=== PATIENT | female | born 1985 | race American Indian/Alaskan Native ===

== ENCOUNTER 2017-08-20 08:26 | Emergency (ER) | payer BC, MEDICAID ==
[2017-08-20 11:35] LABS: Basophils % (Auto) 0.6 % (0.0-1.8); Eosinophils % (Auto) 0.5 % (0.0-4.3); Hematocrit 36.2 % (30.3-42.9); Hemoglobin 12.1 gm/dl (10.1-14.3); Lymphocytes # (Auto) 2.2 K/mm3 (1.2-5.4); Lymphocytes % (Auto) 28.2 % (13.4-35.0); Mean Corpuscular HGB Conc 34 % (30-34); Mean Corpuscular Hemoglobin 32 pg (28-32); Mean Corpuscular Volume 94 fl (79-97); Monocytes # (Auto) 0.5 K/mm3 (0.0-0.8); Monocytes % (Auto) 6.3 % (0.0-7.3); Platelet Count 206 K/mm3 (140-440); Red Blood Count 3.85 M/mm3 (3.65-5.03); Red Cell Distribution Width 15.5 % (13.2-15.2)
[2017-08-20] MEDS ORDERED: NACL 0.9% 1000 ML 1,000 ML IV ONE (11:37)
--- NOTE | 2017-08-20 11:48 | Emergency Department Report ---
ED Abdominal Pain HPI - General Chief Complaint: Upper Respiratory Infection Stated Complaint: CHEST,BACK PAIN Time Seen by Provider: 08/20/17 11:10 Source: patient Mode of arrival: Ambulatory Limitations: No Limitations - History of Present Illness Initial Comments: This is a 32-year-old female nontoxic, well nourished in appearance, no acute signs of distress presents to the ED with c/o of right sided abdominal pain that is radiating to right back x1 day. Patient stated she was at work and developed sharp onset of pain. 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 Patient describes pain as aching with level of 8/10. Patient stated pain comes and goes now. Patient denies any jaw pain, arm pain, numbness, chest pain, tingling, nausea, vomiting, headache, stiff neck, shortness of breathe, fever, or chills. Patient denies difficulty breathing or calf pain or tenderness. Patient denies hemoptysis. Patient denies any recent travels, long car rides, or recent hospital stays. Patient denies any cough or wheezing. Patient denies any allergies or PMH. MD Complaint: abdominal pain -: Last night Location: RUQ Radiation: back Severity: mild Severity scale (0 -10): 8 Quality: aching, sharp Consistency: constant Improves With: nothing Worsens With: nothing Associated Symptoms: denies other symptoms. denies: nausea, vomiting, diarrhea , fever, chills, constipation, dysuria, hematemesis, hematochezia, melena, hematuria, anorexia, syncope - Related Data Previous Rx's Medication Instructions Recorded Last Taken Type traMADol [Ultram] 50 mg PO Q6HR PRN #12 tablet 08/20/17 Unknown Rx Allergies Allergy/AdvReac Type Severity Reaction Status Date / Time No Known Allergies Allergy Verified 09/25/13 06:36 ED Review of Systems ROS: Stated complaint: CHEST,BACK PAIN Other details as noted in HPI Constitutional: denies: chills, fever Eyes: denies: eye pain, eye discharge, vision change ENT: denies: ear pain, throat pain Respiratory: denies: cough, shortness of breath, wheezing Cardiovascular: denies: chest pain, palpitations Endocrine: no symptoms reported Gastrointestinal: abdominal pain. denies: nausea, diarrhea Genitourinary: denies: urgency, dysuria, discharge Musculoskeletal: back pain. denies: joint swelling, arthralgia Skin: denies: rash, lesions Neurological: denies: headache, weakness, paresthesias Psychiatric: denies: anxiety, depression Hematological/Lymphatic: denies: easy bleeding, easy bruising ED Past Medical Hx - Past Medical History Hx Congestive Heart Failure: No Hx Diabetes: No Hx Asthma: No Hx COPD: No - Surgical History Past Surgical History?: No - Social History Smoking Status: Never Smoker Substance Use Type: Marijuana - Medications Home Medications: Home Medications Medication Instructions Recorded Confirmed Last Taken Type traMADol [Ultram] 50 mg PO Q6HR PRN #12 tablet 08/20/17 Unknown Rx ED Physical Exam - General Limitations: No Limitations General appearance: alert, in no apparent distress - Head Head exam: Present: atraumatic, normocephalic, normal inspection - Eye Eye exam: Present: normal appearance, PERRL, EOMI. Absent: scleral icterus, conjunctival injection, nystagmus, periorbital swelling, periorbital tenderness Pupils: Present: normal accommodation - ENT ENT exam: Present: normal exam, normal orophraynx, mucous membranes moist, TM's normal bilaterally, normal external ear exam - Neck Neck exam: Present: normal inspection, full ROM. Absent: tenderness, meningismus, lymphadenopathy, thyromegaly - Respiratory Respiratory exam: Present: normal lung sounds bilaterally. Absent: respiratory distress, wheezes, rales, rhonchi, stridor, chest wall tenderness, accessory muscle use, decreased breath sounds, prolonged expiratory - Cardiovascular Cardiovascular Exam: Present: regular rate, normal rhythm, normal heart sounds. Absent: bradycardia, tachycardia, irregular rhythm, systolic murmur, diastolic murmur, rubs, gallop - GI/Abdominal GI/Abdominal exam: Present: soft, tenderness (RUQ), normal bowel sounds. Absent : distended, guarding, rebound, rigid, diminished bowel sounds - Expanded GI/Abdominal Exam Expanded GI/Abdominal exam: Present: Harris's sign. Absent: psoas sign, obturator sign, heel tap sign, Rovsing's sign, tenderness at Mcburney's Point, ascites - Rectal Rectal exam: Present: deferred - Extremities Exam Extremities exam: Present: normal inspection, full ROM, normal capillary refill. Absent: tenderness, pedal edema, joint swelling, calf tenderness - Back Exam Back exam: Present: normal inspection, full ROM. Absent: tenderness, CVA tenderness (R), CVA tenderness (L), muscle spasm, paraspinal tenderness, vertebral tenderness, rash noted - Neurological Exam Neurological exam: Present: alert, oriented X3, CN II-XII intact, normal gait, reflexes normal - Psychiatric Psychiatric exam: Present: normal affect, normal mood - Skin Skin exam: Present: warm, dry, intact, normal color. Absent: rash ED Course Vital Signs 08/20/17 08/20/17 08:49 12:13 Temperature 99 F Pulse Rate 73 Respiratory 18 18 Rate Blood Pressure 136/74 O2 Sat by Pulse 100 Oximetry - Reevaluation(s) Reevaluation #1: 08/20/17 12:17 Patient is speaking in full sentences with no signs of distress noted. - Consultations Consultation #1: 08/20/17 12:18 Dr. Tran has been consulted about patient history, physical exam, and labs/ exam findings and agrees to the ED plan of care. ED Medical Decision Making - Lab Data Result diagrams: 08/20/17 11:18 08/20/17 11:18 - Medical Decision Making This is a 32-year-old female that presents with cholelithiasis. Patient is stable and was examined by me. US ABDOMEN obtained and dictated a radiologist. Patient is notified of ultrasound report with no question about the patient. Dr. Tran has been consulted about patient's history, physical exam, and lab/US report and agrees to discharge plan of care with follow-up. Labs within normal limits. EKG obtained with no acute changes. Patient received Toradol, morphine and Zofran with 1 L normal saline which patient states symptoms have subsided. Patient stated she feels much better. Patient discharged with Ultram. Patient was instructed Follow-up with a primary care doctor/general surgeon in 3-5 days or if symptoms worsen and continue return to emergency room as soon as possible. At time time of discharge, the patient does not seem toxic or ill in appearance. No acute signs of distress noted. Patient agrees to discharge treatment plan of care. No further questions noted by the patient. Patient was instructed not to operate any machinery after discharge due to drowsiness, which patient stated her boyfriend will drive the patient home after discharge. Critical care attestation.: If time is entered above; I have spent that time in minutes in the direct care of this critically ill patient, excluding procedure time. ED Disposition Clinical Impression: Cholelithiases Qualifiers: Cholelithiasis location: other site Biliary obstruction: with biliary obstruction Qualified Code(s): K80.81 - Other cholelithiasis with obstruction Disposition: TO HOME OR SELFCARE Is pt being admited?: No Does the pt Need Aspirin: No Condition: Stable Instructions: Biliary Colic (ED), Tramadol (By mouth) Additional Instructions: Follow-up with a primary care doctor/general surgeon in 3-5 days or if symptoms worsen and continue return to emergency room as soon as possible. Do not operate any machinery after discharge as directed in the ED due to drowsiness of Morphine. Do not operate any machinery while taking Ultram due to drowsiness. Prescriptions: traMADol [Ultram] 50 mg PO Q6HR PRN #12 tablet PRN Reason: Pain Referrals: PRIMARY CARE, [Primary Care Provider] - 3-5 Days HOA JOYCE MD [Staff Physician] - 3-5 Days LEAH NDIAYE MD [Staff Physician] - 3-5 Days ABY TATE DO [Staff Physician] - 3-5 Days [facility] [Outside] - 3-5 Days [facility] [Outside] - 3-5 Days Forms: Work/School Release Form(ED)
[2017-08-20 11:53] LABS: Creatine Kinase MB 4.7 ng/mL (0.0-4.0)
[2017-08-20 11:55] LABS: BUN/Creatinine Ratio 13; Blood Urea Nitrogen 9 mg/dL (7-17); Calcium 8.9 mg/dL (8.4-10.2); Hemolysis Index 3
[2017-08-20] MEDS ORDERED: TORADOL IV ONE (12:05)
[2017-08-20 13:09] LABS: Lipase 19 units/L (13-60)
[2017-08-20 13:36] LABS: Bilirubin,Urine NEG (Negative); Blood,Urine LG (Negative); Color,Urine Yellow (Yellow); Mucus,Urine 1+ /HPF; Nitrite,Urine NEG (Negative); Urobilinogen,Urine < 2.0 mg/dL (<2.0)
--- NOTE | 2017-08-20 14:04 | XRay Report ---
ROUTINE CHEST, TWO VIEWS: HISTORY: Cough, chest pain. The trachea, heart, mediastinal contour, and lung christine are unremarkable. There is moderate dextrocurvature of the spine in the thoracolumbar region. IMPRESSION: Scoliosis, otherwise, unremarkable exam.
--- NOTE | 2017-08-20 14:09 | Ultrasound Report ---
ULTRASOUND ABDOMEN COMPLETE: TECHNIQUE: Transabdominal ultrasound with color Doppler interrogation. HISTORY: Right upper quadrant abdominal pain. COMPARISON: none. FINDINGS: LIVER: Normal. BILIARY SYSTEM: There are multiple large shadowing gallstones within the gallbladder measuring up to 2 cm. No evidence for abnormal gallbladder wall thickening, distention or pericholecystic fluid. The CBD measures 3 mm. PANCREAS: Normal. SPLEEN: Normal. KIDNEYS: Normal. AORTA/IVC: Normal. ASCITES: None. IMPRESSION: Cholelithiasis.
[2017-08-20] MEDS ORDERED: ZOFRAN IV ONE (14:28)
[2017-08-20] MEDS ORDERED: MORPHINE IV ONE (14:28)
[2017-08-20 14:38] LABS: Alanine Aminotransferase 12 units/L (7-56); Albumin 3.8 g/dL (3.9-5)
[2017-08-20 14:44] LABS: Bilirubin,Direct < 0.2 mg/dL (0-0.2)
[2017-08-20 15:12] VITALS: BP 106/59
== END 2017-08-20 16:44 | disposition home or self-care (01) ==
LOC: ED 08:26
DX: K80.81 Other cholelithiasis with obstruction (principal)
CPT/HCPCS: 36415; 71046; 76700; 80048; 80074; 81001; 82150; 82550; 82553; 83690; 84484; 84703; 85025; 85379; 87400; 93005; 93010; 96361; 96374; 96375; 99284; J1885; J2270; J2405; J7030

== ENCOUNTER 2017-08-30 11:37 | Day surgery (SDC) | payer BC ==
[~2017-08-30 11:37] MED LIST: NACL 0.9% 1000 ML 1,000 ML IV SCH; PEPCID IV NR; SUBLIMAZE IV PRN; ZOFRAN IV PRN
[2017-08-30] MEDS ORDERED: DIPRIVAN 10 MG/ML IV ONE (11:48)
[2017-08-30] MEDS ORDERED: SUBLIMAZE ONE (11:49)
[2017-08-30] MEDS ORDERED: XYLOCAINE MPF 2% ONE (11:53)
[2017-08-30] MEDS ORDERED: ZOFRAN ONE ×2 (11:54→13:25)
[2017-08-30] MEDS ORDERED: ZEMURON IV ONE (11:54)
[2017-08-30] MEDS ORDERED: NACL BACTERIOSTATIC INFILTRATI ONE (12:18)
--- NOTE | 2017-08-30 12:30 | Anesthesia Consultation ---
Anesthesia Consult and Med Hx Date of service: 08/30/17 - Airway Anesthetic Teeth Evaluation: Good ROM Head & Neck: Adequate Mental/Hyoid Distance: Adequate Mallampati Class: Class I Intubation Access Assessment: Good - Pulmonary Exam CTA: Yes - Cardiac Exam Cardiac Exam: RRR - Pre-Operative Health Status ASA Pre-Surgery Classification: ASA2 Proposed Anesthetic Plan: General - Pulmonary Hx Smoking: Yes (MARIJUANA FOR 15 YEARS) Hx Asthma: No Hx Respiratory Symptoms: Yes (bronchitis) COPD: No Hx Pneumonia: No - Central Nervous System Hx Psychiatric Problems: No - Endocrine Hx End Stage Renal Disease: No - Hematic Hx Anemia: Yes - Other Systems Hx Alcohol Use: No Hx Substance Use: Yes (MARIJUANA) Hx Cancer: No - Additional Comments Anesthesia Medical History Comments: Informed consent obtained
--- NOTE | 2017-08-30 12:31 | Anesthesia Day of Surgery ---
Anesthesia Day of Surgery - Day of Surgery Patient Examined: Yes Patient H&P Reviewed: Yes Patient is NPO: Yes
[2017-08-30] MEDS ORDERED: XYLOCAINE 1% 20 mL ONE (12:58)
[2017-08-30] MEDS ORDERED: MARCAINE 0.5% 30 ML INFILTRATI ONE (12:58)
[2017-08-30] MEDS ORDERED: ANCEF/STERILE WATER 2 GM/20 ML IV NR (13:00)
[2017-08-30] MEDS ORDERED: NACL 0.9% IR ONE (13:16)
[2017-08-30] MEDS ORDERED: MARCAINE 0.5% INFILTRATI ONE ×2 (13:17)
[2017-08-30] MEDS ORDERED: XYLOCAINE 1% 20 mL INFILTRATI ONE ×2 (13:17)
[2017-08-30] MEDS ORDERED: DECADRON ONE (13:26)
[2017-08-30] MEDS ORDERED: ROBINUL ONE (15:11)
[2017-08-30] MEDS ORDERED: NEOSTIGMINE ONE (15:11)
[2017-08-30] MEDS ORDERED: NACL 0.9% 1000 ML 1,000 ML ONE (15:21)
[2017-08-30] MEDS ORDERED: TORADOL ONE (15:49)
--- NOTE | 2017-08-30 16:07 | Post Anesthesia Evaluation ---
- Post Anesthesia Evaluation Patient Participated: Yes Airway Patent: Yes Stable Respiratory Function: Yes Nausea/Vomiting: No Temp > 96.8F: Yes Pain Manageable: Yes Adequeate Hydration: Yes Anesthesia Complications: No
--- NOTE | 2017-08-30 16:11 | Operative Report ---
Operative Report Operative Report: Date of operation: 08/30/17 Preoperative diagnosis: Symptomatic cholelithiasis postOperative diagnoses: Chronic calculus cholecystitis Procedure performed: Laparoscopic cholecystectomy, extensive lysis of adhesions Surgeon: Lizbeth Salazar DO [employer] Corrosion Proofer: Chaya Chatman MD Anesthesia: Gen. endotracheal anesthesia Findings: Extensive adhesions from the bowel to the anterior abdominal wall. Extensive adhesions from the bowel to the gallbladder and liver. Thickened gallbladder wall, multiple stones in the gallbladder. Specimen: Gallbladder Estimated blood loss: 25cc Complications: None Disposition: Stable to PACU HPI an indication: 32-year-old female who was referred to the surgical clinic for evaluation of gallstones. The patient presented to the emergency room with very severe right upper quadrant abdominal pain and was worked up. Laboratory data did not suggest any evidence of infection or obstruction. A right upper quadrant ultrasound was performed which showed cholelithiasis. The patient had an extensive surgical history consisting of multiple small bowel resections secondary to bowel residing outside of the abdomen upon . I discussed cholecystectomy with the patient and we discussed performing this laparoscopically. I did discuss with the patient that secondary to her extensive abdominal surgical history, the chances of converting to an open operation was higher. We discussed all risks including but not limited to, infection, bleeding, injury to other structures, conversion to open procedure, bile leak, reoperation. The patient's questions were answered, and she acknowledged understanding of the risks. The patient was then consented for a laparoscopic possible open cholecystectomy. Procedure in detail: The patient was identified in the preoperative area and taken back to the operating room, placed on the operating room table in supine position. After anesthesia was induced, the abdomen was prepped and draped in usual sterile fashion and timeout was performed. Local anesthetic was infiltrated into all of the skin incision sites. Using an 11 blade a umbilical incision was made and dissection carried down through the skin and subcutaneous tissue using electrocautery. The fascia was visualized and tented up using batsheva clamps. Using the Metzenbaum scissors the fascia was incised and the peritoneum visualized. The peritoneum was then grasped and tented cephalad and entered using the Metzenbaum scissors. A 12 mm Juarez trocar was then placed through this incision and the abdomen insufflated to 15 mmHg. Upon entering the abdomen, there were no injuries visualized to the underlying abdominal structures. There was however an extensive amount of adhesions from the bowel to the anterior abdominal wall that obscured the upper abdominal contents. I therefore placed an additional left lower quadrant 5 mm port under direct visualization and proceeded to perform adhesiolysis using a combination of Harmonic scalpel device and sharp dissection using the endoshears. Once there was enough abdominal wall exposed an additional left upper quadrant 5 mm trocar was placed under direct visualization. I then continued lysis of adhesions in order to visualize the right upper quadrant. The bowel was gently dissected off the anterior abdominal wall using EndoShears. All portions of the bowel were examined after being released in order to exclude any injury. An additional 5 mm subxiphoid and 5 mm right upper quadrant trocar was placed under direct visualization in order to facilitate further lysis of adhesions. A tiny unavoidable serosal tear was created during lysis of adhesions of small bowel from anterior abdominal wall. Upon further inspection, there was a tiny amount of mucosa exposed. Clips were placed across this area and then a Vicryl Endoloop below the clips in order to secure the repair. Once this portion of the lysis of adhesions was complete we were able to visualize the right lobe of the liver. The liver was retracted towards the abdominal wall and there was a thin layer of adhesions covering the gallbladder and causing more small bowel to be adhesed to the gallbladder and the liver. These adhesions were taken down bluntly until the small bowel was gently peeled off the liver. A small window was made in the adhesions and these were taken down until the gallbladder was visualized. The lysis of adhesions lasted 1.5 hours. At this point, we proceeded with cholecystectomy. An additional 5 mm right upper quadrant working port was placed under direct visualization The gallbladder fundus was lifted cephalad and above the liver, and the peritoneum of the gallbladder incised using the Harmonic scalpel. Using a [place], the cystic duct and artery were carefully dissected and the critical view obtained, and the cystic duct and artery were the only two structures seen entering the gallbladder. Three clips were then placed on the proximal aspect of the cystic duct and one clip distally, and 2 clips on the cystic artery proximally. The cystic duct is transected in between the clips using EndoShears and cystic artery is transected above the clips using harmonic scalpel. The gallbladder was taken off the liver bed using the harmonic scalpel. The gallbladder was placed into a Endo Catch bag and removed from the abdomen via the 12mm port. The gallbladder fossa was then inspected and there was no identifiable bleeding or bile leakage. Hemostasis was ensured. The clips on the cystic duct and artery were visualized and intact. The 12 mm port fascia was closed with a single figure of 8 0 Vicryl suture . The remaining ports were removed and skin incisions were closed with 4-0 Monocryl subcuticular stitches and skin glue. All skin incisions were once again infiltrated with local anesthetic. At the end case all sponge, instrument, sharp counts were correct 2. The patient was awoken from anesthesia, extubated, taken to PACU in stable condition.
[2017-08-30] MEDS: DILAUDID IV PRN ×4 (16:12→16:40)
--- NOTE | 2017-08-30 16:14 | Short Stay Summary ---
Short Stay Documentation Date of service: 08/30/17 - History Principal diagnosis: symptomatic cholelithiasis H&P: obtained from office - Allergies and Medications Current Medications: Allergies No Known Allergies Allergy (Verified 09/25/13 06:36) Home Medications Medication Instructions Recorded Confirmed Last Taken Type traMADol [Ultram] 50 mg PO Q6HR PRN #12 tablet 08/20/17 08/30/17 08/28/17 Rx Ferrous Sulfate [Iron] 325 mg PO BID 08/29/17 08/30/17 08/29/17 History Active Medications Cefazolin Sodium (Ancef/Sterile Water 2 Gm/20 Ml) 2 gm IV PREOP NR Stop: 08/30/17 23:01 Famotidine (Pepcid) 20 mg IV PREOP NR Stop: 08/30/17 18:00 Last Admin: 08/30/17 12:40 Dose: 20 mg Fentanyl (Sublimaze) 50 mcg IV Q5MIN PRN PRN Reason: Pain , Severe (7-10) Stop: 08/30/17 18:00 Hydromorphone HCl (Dilaudid) 0.25 mg IV Q10MIN PRN PRN Reason: Pain, Moderate (4-6) Stop: 08/30/17 18:00 Sodium Chloride (Nacl 0.9% 1000 Ml) 1,000 mls @ 100 mls/hr IV DIRECT AMINA Stop: 08/30/17 21:00 Last Admin: 08/30/17 12:25 Dose: 100 mls/hr Ondansetron HCl (Zofran) 4 mg IV ONCE PRN PRN Reason: Nausea And Vomiting Stop: 08/30/17 18:00 - Brief post op/procedure progress note Date of procedure: 08/30/17 Pre-op diagnosis: symptomatic cholelithiasis Post-op diagnosis: other (chronic calculus cholecystitis) Procedure: Laparoscopic cholecystectomy with extensive lysis of adhesions Anesthesia: GETA Findings: Extensive adhesions from the small bowel to the anterior abdominal wall. This is of adhesions lasted greater than 1.5 hours Surgeon: ABY TATE Auto Body Technician: MARTINEZ [employer] Estimated blood loss: other (25cc) Pathology: list (gallbladder) Specimen disposition: to lab Condition: stable - Hospital course Hospital course: The patient was recovered in the PACU and discharged home in stable condition once criteria was met. - Disposition Condition at discharge: Good Disposition: [id number] TO HOME OR SELFCARE - Discharge Diagnoses (1) Cholelithiases Status: Acute Short Stay Discharge Plan Activity: other (avoid heavy lifting greater than [address] if taking narcotic pain medications.) Diet: low fat Wound: open to air, other (May shower tomorrow. Pat Incisions dry, do not scrub. No baths, hot tubs, pools until incisions are healed.) Follow up with: CANDIDA EAGLE MD [Primary Care Provider] - 7 Days ABY TATE DO [Staff Physician] - 14 Days Prescriptions: oxyCODONE /ACETAMINOPHEN [Percocet 5/325] 1 tab PO Q4HR PRN #20 tab PRN Reason: Pain
[2017-08-30] MEDS ORDERED: PERCOCET 5/325 PO PRN (16:58)
[2017-08-30 18:46] VITALS: BP 117/68
== END 2017-08-30 18:40 | disposition home or self-care (01) ==
LOC: OR 11:37
PROVIDERS: ATTEND Surgery
DX: K80.10 Calculus of gallbladder with chronic cholecystitis without obstruction (principal); K66.0 Peritoneal adhesions (postprocedural) (postinfection); Z79.899 Other long term (current) drug therapy; Z98.51 Tubal ligation status; Z98.890 Other specified postprocedural states; Z87.891 Personal history of nicotine dependence
CPT/HCPCS: 47562; 49329; 81025; J0690; J1100; J1170; J1885; J2405; J2704; J2710; J3010; J7030; 88304